=== PATIENT | female | born 1955 | race Caucasian/White ===

== ENCOUNTER → 2017-03-03 | Day surgery (SDC) | payer OTHER, MEDICARE ==
[~2017-03-03] VITALS: Ht 162.6 cm; Wt 63.5 kg
[~2017-03-03] MED LIST: ASPIRIN EC81 M1 PO; BACLOFEN20 M1 PO; DICLOFENAC POTA50 M1 PO; LEVOTHYROXINE88 MCG PO; LYRICA150 M1 PO; PERCOCET 325 MG1 TA2 PO; PLAQUENIL200 M1 PO; RANITIDINE HCL150 M2 PO; VICODIN5-300 PO; VITAMIN B12; ZOFRAN4 M1 PO
--- NOTE | 2017-03-03 12:18 | Operative Report ---
Operative/Inv Procedure Report Surgery Date: 03/03/17 Name of Procedure: left eswl:renal Pre-Operative Diagnosis: left renal stone with colic Post-Operative Diagnosis: same Estimated Blood Loss: none Surgeon/Patent Solicitor: NATY ROSE MD Anesthesia: moderate sedation Specimens: none Complications: none Operative/Procedure Note Note: The patient was taken to the operating room and placed on the ESWL table in supine position. With the patient awake and participating, timeout was performed to confirm correct identity, procedure, laterality, anesthesia, and other pertinent chidi-operative information. After adequate anesthesia, the patient was positioned so that the patient's left flank was positioned over the table cut-out, overlying the dome of the treatment head. Once the patient was adequately sedated, fluoroscopy, as well as Renal ultrasound was used to locate the LEFT renal stone. Renal US confirmed the presence of the stone which measured it to be approximately 6 mm upper pole stone. The stone was visible with fluoroscopy. Renal US revealed, no hydronephrosis, and no solid tumor, and presence of the stone. The position of the stone was optimized by using fluoroscopy in AP and oblique views;placing the stone within the ESWL c-arm crosshairs. Once the stone's position was optimized, the LEFT renal E.S.W.L. was initiated at low energy level. After noting the patient's tolerance to the shockwaves, the intensitiy was ramped up to maximum level. At the end of the procedure, the left renal stone had dissintegrated. Of note, a total of 2500 shockwaves were delivered to the stone. The patient tolerated the ESWL procedures well, was awakened, then taken to recovery in satisfactory condition via stretcher. The patient was dischared home with pain medications, diet orders, and intructions to catch fragments by straining the urine. The patient to to have follow-up renal ultrasound and KUB in 1 to 2 weeks, prior to follow-up visit in my office. He will then proceed with metabolic stone work-up. Discharge Disposition: Same Day Admissions CC: NATY ROSE MD
== END ==
LOC: STS 02:04
DX: N20.0 Calculus of kidney (principal); M32.9 Systemic lupus erythematosus, unspecified; I51.9 Heart disease, unspecified; H81.09 Meniere's disease, unspecified ear
CPT/HCPCS: J2405